=== PATIENT | male | born 1980 | race Caucasian/White ===

== ENCOUNTER 2017-07-09 11:43 | Emergency (ER) | payer MEDICAID, SELFPAY ==
[2017-07-09 11:45] VITALS: BP 171/96; PULSE 90; RESP 16; TEMP 36.7; O2SAT 97; BMI 34.4
--- NOTE | 2017-07-09 12:19 | EKG12_ITS ---
Test Reason : CHEST OTHER Blood Pressure : / mmHG Vent. Rate : 084 BPM Atrial Rate : 084 BPM P-R Int : 162 ms QRS Dur : 092 ms QT Int : 362 ms P-R-T Axes : 024 -46 008 degrees QTc Int : 427 ms Normal sinus rhythm Left axis deviation Abnormal ECG Confirmed by MINDY DE LA GARZA ([id number]), editor continuity and script BRIANDA FRANCIS ([id number]) on 07/20/2017 6:29:42 PM Referred By: DEBBIE Confirmed By:MINDY DE LA GARZA
--- NOTE | 2017-07-09 12:19 | RAD_ITS ---
STUDY: X-RAY CHEST REASON FOR EXAM: Male, 37 years old. Chest pain intermittently worsening over last few weeks. TECHNIQUE: Single AP portable upright view of the chest. COMPARISON: None. FINDINGS: Small, vague asymmetric density projecting in the left apex along the inferior margin of the first costochondral junction is consistent with a summation artifact. The lungs are otherwise clear and expanded. There is no demonstrated pleural abnormality. Normal size heart. Normal mediastinum and cydney. Normal visualized pulmonary arteries. Normal visualized aortic arch and descending thoracic aorta. Normal visualized thoracic spine. Normal visualized ribs, clavicles, and shoulders. There is no demonstrated abnormality of the visualized soft tissue structures of the upper abdomen. RAD/Chest 1 View (Portable) IMPRESSION: Normal x-ray examination of the chest. Electronically Signed: Amari Meade MD at 12:45 EDT , Service support ,
--- NOTE | 2017-07-09 12:23 | ED.DCSUM_ITS ---
- ER Visit Summary Date of Service: 07/09/17 Chief Complaint: Chest pain History of Present Illness: The patient is a 37 M presenting with chest pain ?2 weeks. Patient states he has had continuous pain in the mid chest for the past 2 weeks. He has had a mild cough. He denies fever. Denies shortness of breath. Denies trauma. He states sometimes the pain is worsened with eating. He denies PE/DVT risk factors. He has a history of diabetes, hypertension, hypercholesterolemia. No family history of early heart disease. He is a smoker. Physical Examination: Vitals are stable. Patient is afebrile. Alert no acute distress. HEENT exam is unremarkable. Neck is supple. Lungs are clear and equal bilaterally. Mid chest wall tenderness with no crepitus. Heart is regular rate and rhythm. Abdomen is soft nontender nondistended. Extremities are unremarkable. Skin is warm and dry. No focal neurologic deficit. Remainder of exam is unremarkable. Emergency Department Course and Treatment: Patient was given aspirin on arrival. EKG is sinus rate of 84 with no acute ischemic changes. Chest x-ray shows no acute process. CBC, chemistries unremarkable other than glucose 339. Lipase is normal. Troponin is negative. Patient has had continuous symptoms for several days with a negative troponin. His pain is reproducible. He will be given a prescription for Naprosyn. He is advised to follow-up with his primary care physician. Advised return to ED for worsening complaints. Disposition: Discharge home Impression: Chest wall pain This note was generated with [employer] dictation software. It may contain incorrect words, spelling, and punctuation that were not noted in review of the chart prior to signing ED Disposition - Plan for ED Patient: Chief Complaint: Chest Other
[2017-07-09] MEDS: Aspirin 81 MG TAB.CHEW 324 MG PO (12:41)
[2017-07-09 12:42] LABS: Absolute Lymphocyte Count 1.79 X10^3/ul (0.83-4.51); Absolute Neutrophil Count 4.9 X10^3/uL (2.0-7.7); Basophil# 0.03 X10^3/uL; Basophil% 0.4 % (0-1); Eosinophil# 0.09 X10^3/uL; Eosinophils% 1.2 % (0-5); Hematocrit 50.6 % (40-54); Hemoglobin 17.9 g/dl (13.0-16.5); Lymphocyte # 1.79 X10^3/ul (4.0); Lymphocyte % 24.8 % (19-41); Mean Corp Hgb Conc 35.4 g/gl (32-36); Mean Corpuscular Hgb 29.7 pg (27.0-32.0); Mean Corpuscular Volume 83.9 fL (80-94); Mean Platelet Vol. 11.1 fl (6.2-12.0); Monocyte# 0.35 X10^3/uL; Monocyte% 4.9 % (0-10); Neutrophil # 4.94 X10^3/uL (2.7-7.7); Neutrophil % 68.6 % (47-70); Platelet Count 147 K/mm3 (150-450); Red Blood Count 6.03 M/mm3 (4.6-6.2); White Blood Count 7.2 K/mm3 (4.4-11.0)
[2017-07-09 12:52] LABS: POSITIVE COUNT NO; POSITIVE DIFFERENTIAL NO; POSITIVE MORPHOLOGY NO
[2017-07-09 12:55] LABS: Anion Gap 6 (5-15); BUN 13 mg/dL (7-18); BUN/Creat Ratio 14.1 RATIO (10-20); Calcium,Total 8.8 mg/dL (8.5-10.1); Chloride 103 mmol/L (98-107); Creatinine, Serum 0.92 mg/dL (0.70-1.30); EST Glomerular Filtration Rate 98 mL/min (>60); Est Glom Filt Rate - Afr Amer 119 mL/min (>60); Estimated Creatinine Clearance 113.51 ml/min; Glucose 339 mg/dL (74-106); Lipase 219 U/L (73-393); Potassium 4.1 mmol/L (3.5-5.1); Sodium Level 137 mmol/L (136-145)
--- NOTE | 2017-07-09 14:28 | ED.DEP ---
ED Disposition - Plan for ED Patient: Chief Complaint: Chest Other Instructions: ED Strain Chest Wall Prescriptions: Naproxen [Naprosyn] 500 mg PO BID PRN #20 tablet Referrals: [facility] Doctor,Out of [Primary Care Provider] -
[2017-07-09 15:00] VITALS: BP 124/84; PULSE 78; RESP 18; O2SAT 98
== END 2017-07-09 15:02 | disposition home or self-care (01) ==
PROVIDERS: Emergency Provider Emergency Medicine
DX: R07.89 Other chest pain (principal); R05 Cough; E11.9 Type 2 diabetes mellitus without complications; Z86.79 Personal history of other diseases of the circulatory system; Z86.39 Personal history of other endocrine, nutritional and metabolic disease; Z90.89 Acquired absence of other organs; F17.200 Nicotine dependence, unspecified, uncomplicated
CPT/HCPCS: 71045; 80048; 83690; 84484; 85025; 93005; 99284; A4216